=== PATIENT | male | born 1985 | race Two or more races ===

== ENCOUNTER 2020-11-17 20:53 | Emergency (ER) | payer OTHER ==
[2020-11-17 20:57] VITALS: BMI 23.5
[2020-11-17] MEDS ORDERED: FOLIC ACID INJECTION - 1 MG, THIAMINE HCL 100 MG, MULTIVIT INJECTION ADULT 10 ML in SOD... IVPB ONE (21:44)
[2020-11-17] MEDS ORDERED: chlordiazePOXIDE HCL 25 MG CAPSULE PO ONE (22:07)
[2020-11-17 22:10] LABS: BASO % 0.5 % (0-2.0); EOS % 0.5 % (0-4.5); HEMATOCRIT 48.5 % (35.4-49); LYMPH % 15.1 % (8-40); MCH 31.5 pg (25.7-33.7); MEAN CELL VOLUME 90.1 fl (80-96); MEAN PLT VOLUME 7.7 fl (7.5-11.1); NEUT % 76.9 % (42.8-82.8); RBC 5.38 M/mm3 (4.00-5.60); RDW 16.2 % (11.9-15.9); WHITE BLOOD COUNT 3.7 K/mm3 (4.0-10.0)
[2020-11-17 22:11] LABS: PLATELET COUNT 62 K/MM3 (134-434)
[2020-11-17] MEDS ORDERED: chlordiazePOXIDE HCL 25 MG CAPSULE ONE (22:15)
[2020-11-17 22:31] LABS: CHLORIDE 98 mmol/L (98-107); POTASSIUM 3.8 mmol/L (3.5-5.1); SODIUM 136 mmol/L (136-145)
[2020-11-17 22:33] LABS: CALCIUM 9.7 mg/dL (8.5-10.1)
[2020-11-17 22:34] LABS: ALBUMIN 4.6 g/dl (3.4-5.0); ANION GAP 14 MMOL/L (8-16); CO2 25 mmol/L (21-32); GLUCOSE,RANDOM 105 mg/dL (74-106)
[2020-11-17 22:37] LABS: CREATININE 0.7 mg/dL (0.55-1.3); SGOT/AST 265 U/L (15-37); SGPT/ALT 233 U/L (13-61)
[2020-11-17 22:39] LABS: BILIRUBIN,TOTAL 1.2 mg/dL (0.2-1); TOT PROT 8.3 g/dl (6.4-8.2)
[2020-11-17 22:40] LABS: ALK PHOS 102 U/L (45-117)
[2020-11-17] MEDS ORDERED: SODIUM CHLORIDE 1,000 ML IV STA (23:13)
[2020-11-17] MEDS ORDERED: THIAMINE HCL 200 MG/2 ML VIAL IVPB ONE (23:14)
[2020-11-17] MEDS ORDERED: FOLIC ACID 5 MG/1 ML IVPB ONE (23:15)
[2020-11-17] MEDS ORDERED: THIAMINE HCL 200 MG/2 ML VIAL ONE (23:18)
[2020-11-18 05:43] VITALS: TEMP 99.2
[2020-11-18 07:22] VITALS: BP 147/91; PULSE 83
== END 2020-11-18 07:43 | disposition home or self-care (01) ==
LOC: JER 20:53
PROC: 3E033NZ Introduction of Analgesics, Hypnotics, Sedatives into Peripheral Vein, Percutaneous Approach (ICD-10-PCS; principal; 2020-11-17)
PROC: 3E033GC Introduction of Other Therapeutic Substance into Peripheral Vein, Percutaneous Approach (ICD-10-PCS; 2020-11-17)
PROC: 3E0337Z Introduction of Electrolytic and Water Balance Substance into Peripheral Vein, Percutaneous Approach (ICD-10-PCS; 2020-11-17)
DX: F10.10 Alcohol abuse, uncomplicated (principal)
CPT/HCPCS: 36415; 80053; 80307; 83690; 85025; 99285-25

== ENCOUNTER 2021-07-01 10:28 | Inpatient (IN) | payer OTHER ==
[2021-07-01 10:48] VITALS: BMI 25.0
[2021-07-01] MEDS ORDERED: SODIUM CHLORIDE 0.9% 500 ML INFUS.BAG IV ONE (11:06)
[2021-07-01] MEDS ORDERED: FOLIC ACID INJECTION - 1 MG, THIAMINE HCL 100 MG, MULTIVIT INJECTION ADULT 10 ML in SOD... IVPB ONE (11:06)
[2021-07-01 12:39] LABS: VENOUS BASE EXCESS -7.1 mmol/L (-2-2); VENOUS O2 SATURATION 72.8 % (70-80); VENOUS PCO2 33.1 mmHg (38-52); VENOUS PH 7.342 (7.310-7.410)
[2021-07-01 12:48] LABS: HEMATOCRIT 46.5 % (35.4-49); HEMOGLOBIN 16.3 GM/dL (11.7-16.9); MCH 32.9 pg (25.7-33.7); RBC 4.94 M/mm3 (4.00-5.60); WHITE BLOOD COUNT 2.4 K/mm3 (4.0-10.0)
[2021-07-01 12:49] LABS: BASO % 1.7 % (0-2.0); EOS % 0.1 % (0-4.5); LYMPH % 27.9 % (8-40); MEAN PLT VOLUME 7.9 fl (7.5-11.1); MONO % 9.7 % (3.8-10.2); NEUT % 60.6 % (42.8-82.8); PLATELET COUNT 39 10^3/uL (134-434); RDW 12.9 % (11.9-15.9)
[2021-07-01 12:50] LABS: INR 0.92 (0.83-1.09); PROTHROMBIN TIME (PATIENT) 11.2 SEC (9.7-13.0)
[2021-07-01 12:59] LABS: CHLORIDE 93 mmol/L (98-107); SODIUM 131 mmol/L (136-145)
[2021-07-01 13:02] LABS: ALBUMIN 3.7 g/dl (3.4-5.0); ANION GAP 23 MMOL/L (8-16); BLOOD UREA NITROGEN 13.7 mg/dL (7-18); CO2 15 mmol/L (21-32); GLUCOSE,RANDOM 100 mg/dL (74-106); LIPASE 847 U/L (73-393)
[2021-07-01 13:05] LABS: CREATININE 0.9 mg/dL (0.55-1.3); PHOSPHOROUS 2.5 mg/dL (2.5-4.9); SGOT/AST 213 U/L (15-37); SGPT/ALT 146 U/L (13-61)
[2021-07-01 13:07] LABS: BILIRUBIN,TOTAL 1.4 mg/dL (0.2-1); TOT PROT 7.5 g/dl (6.4-8.2)
[2021-07-01 13:08] LABS: ALK PHOS 121 U/L (45-117)
[2021-07-01] MEDS ORDERED: POTASSIUM CHLORIDE 20 MEQ PREMIX IVPB 100 ML IVPB ONE (13:13)
[2021-07-01] MEDS ORDERED: LACTULOSE 20 GM/30 ML UDC (FOR ORAL USE ONLY) PO ONE (15:31)
[2021-07-01] MEDS ORDERED: POTASSIUM CHLORIDE 10 MEQ PREMIX IVPB (POTASSIUM RIDER) IVPB ONE (16:00)
[2021-07-01] MEDS ORDERED: LACTULOSE 20 GM/30 ML UDC (FOR ORAL USE ONLY) ONE (16:03)
[2021-07-01] MEDS ORDERED: KCL 10 MEQ IVPB 10 MEQ/100 ML INFUS.BAG IVPB ONE (16:03)
[2021-07-01] MEDS ORDERED: THIAMINE HCL 200 MG/2 ML VIAL IVPB ONE (17:06)
[2021-07-01] MEDS ORDERED: SODIUM CHLORIDE 1,000 ML IV STA (17:10)
[2021-07-01] MEDS ORDERED: THIAMINE HCL 200 MG/2 ML VIAL ONE (18:09)
[2021-07-01] MEDS ORDERED: PANTOPRAZOLE SODIUM 40 MG VIAL ONE (18:09)
[2021-07-01] MEDS ORDERED: PIPERACILLIN/TAZOB 3.375 GM 3.375 GM/50 ML BAG IVPB ONE (18:10)
[2021-07-01] MEDS: SODIUM CHLORIDE 1,000 ML IV SCH (18:26)
[2021-07-01] MEDS: PANTOPRAZOLE SODIUM 40 MG VIAL IVPUSH SCH (18:26)
[2021-07-01] MEDS: PIPERACILLIN/TAZOB 3.375 GM 3.375 GM in DEXTROSE 5%-WATER - 50 ML IVPB SCH (18:26)
[2021-07-01] MEDS ORDERED: IBUPROFEN 400 MG TABLET (FP) PO PRN (19:08)
[2021-07-01] MEDS ORDERED: LACTULOSE 20 GM/30 ML UDC (FOR ORAL USE ONLY) PO PRN (19:11)
[2021-07-01] MEDS ORDERED: SODIUM CHLORIDE 1,000 ML IV SCH ×2 (19:15→19:25)
[2021-07-01] MEDS ORDERED: MORPHINE SULFATE 2 MG/ML VIAL IVPUSH PRN (19:32)
[2021-07-01] MEDS ORDERED: LORazepam 2 MG/ML SDV VIAL IVPUSH PRN (19:32)
[2021-07-01 21:10] LABS: BASO % 1.4 % (0-2.0); EOS % 0.1 % (0-4.5); HEMATOCRIT 36.9 % (35.4-49); HEMOGLOBIN 13.2 GM/dL (11.7-16.9); LYMPH % 20.3 % (8-40); MCH 33.1 pg (25.7-33.7); MCHC 35.7 g/dl (32.0-35.9); MEAN CELL VOLUME 92.8 fl (80-96); MEAN PLT VOLUME 8.3 fl (7.5-11.1); MONO % 6.7 % (3.8-10.2); NEUT % 71.5 % (42.8-82.8); RBC 3.98 M/mm3 (4.00-5.60); RDW 12.9 % (11.9-15.9); WHITE BLOOD COUNT 2.2 K/mm3 (4.0-10.0)
[2021-07-01 22:41] LABS: PLATELET COUNT 32 10^3/uL (134-434)
[2021-07-02] MEDS ORDERED: PIPERACILLIN/TAZOBACTAM 3.375 GM VIAL IVPB ONE ×3 (03:14→20:27)
[2021-07-02] MEDS ORDERED: DEXTROSE 5%-WATER - 50 ML IVPB ONE ×3 (03:15→20:27)
[2021-07-02] MEDS: NYSTATIN 500,000 UNITS/5 ML SUSPENSION PO SCH ×2 (03:15→06:48)
[2021-07-02] MEDS: PIPERACILLIN/TAZOB 3.375 GM 3.375 GM in DEXTROSE 5%-WATER - 50 ML IVPB SCH ×3 (03:16→21:02)
[2021-07-02 07:05] LABS: HEMATOCRIT 37.9 % (35.4-49); HEMOGLOBIN 13.5 GM/dL (11.7-16.9); MCH 33.5 pg (25.7-33.7); MCHC 35.6 g/dl (32.0-35.9); MEAN CELL VOLUME 94.1 fl (80-96); MEAN PLT VOLUME 8.5 fl (7.5-11.1); RBC 4.03 M/mm3 (4.00-5.60); RDW 12.5 % (11.9-15.9)
[2021-07-02 07:41] LABS: PLATELET COUNT 26 10^3/uL (134-434)
[2021-07-02 07:46] LABS: CALCIUM 7.9 mg/dL (8.5-10.1)
[2021-07-02 07:47] LABS: ALBUMIN 3.1 g/dl (3.4-5.0); BLOOD UREA NITROGEN 7.6 mg/dL (7-18); MAGNESIUM 1.7 mg/dL (1.8-2.4)
[2021-07-02 07:50] LABS: PHOSPHOROUS 1.6 mg/dL (2.5-4.9)
[2021-07-02 07:52] LABS: BILIRUBIN,TOTAL 1.6 mg/dL (0.2-1)
[2021-07-02 07:53] LABS: CREATININE 0.6 mg/dL (0.55-1.3)
[2021-07-02 07:55] LABS: TOT PROT 6.1 g/dl (6.4-8.2)
[2021-07-02] MEDS: MULTIVITAMINS (DAILY MVI) TABLET (FP) PO SCH (09:58)
[2021-07-02] MEDS: THIAMINE HCL 100 MG TABLET (FP) PO SCH (09:58)
[2021-07-02] MEDS: FOLIC ACID 1 MG TABLET (FP) PO SCH (09:58)
[2021-07-02] MEDS: PANTOPRAZOLE SODIUM 40 MG VIAL IVPUSH SCH (09:58)
[2021-07-02] MEDS: SODIUM CHLORIDE 1,000 ML IV SCH (09:59)
[2021-07-02] MEDS ORDERED: MAGNESIUM SULFATE IN WATER 2 GM/50 ML IVPB IVPB ONE (10:30)
[2021-07-02] MEDS: KCL 10 MEQ IVPB 10 MEQ/100 ML INFUS.BAG IVPB SCH ×3 (10:52→13:06)
[2021-07-02] MEDS ORDERED: PT OWN MED DRAWER 7, Y5N ONE (13:04)
[2021-07-02] MEDS: POTASSIUM CHLORIDE IVPB SCH (13:06)
[2021-07-02] MEDS: NORMAL SALINE IVPB SCH (13:06)
[2021-07-02] MEDS: DEXTROSE 5% IVPB SCH (13:06)
[2021-07-02] MEDS: NAPH,MB-DB/K PH,MBDB POWDER PACKET PO SCH ×2 (13:07→21:03)
[2021-07-02 13:09] LABS: HIV INTERPRETATION NEGATIVE (NEGATIVE)
[2021-07-02 21:12] LABS: EPI CELLS 9 /uL (0-25.1); HYALINE CASTS 2 /uL (0-3.1); URINE APPEARANCE CLEAR; URINE BACTERIA 37 /uL (0-1359); URINE BILIRUBIN NEGATIVE (NEGATIVE); URINE COLOR YELLOW; URINE GLUCOSE (UA) NEGATIVE (NEGATIVE); URINE KETONE 4+ (NEGATIVE); URINE LEUK ESTERASE NEGATIVE (NEGATIVE); URINE NITRITE NEGATIVE (NEGATIVE); URINE PROTEIN 2+ (NEGATIVE); URINE RBC 36 /uL (0-23.9); URINE WBC 6 /uL (0-25.8)
[2021-07-02 21:13] LABS: COCAINE, UR NEGATIVE (NEGATIVE); METHADONE, UR NEGATIVE (NEGATIVE); OPIATES, URI NEGATIVE (NEGATIVE); PHENCYCLIDINE,URINE NEGATIVE (NEGATIVE); URINE BARBITURATES NEGATIVE (NEGATIVE); URINE BENZODIAZEPINES NEGATIVE (NEGATIVE)
[2021-07-02 21:24] LABS: URINE AMPHETAMINES NEGATIVE (NEGATIVE)
[2021-07-03] MEDS ORDERED: PIPERACILLIN/TAZOBACTAM 3.375 GM VIAL IVPB ONE ×2 (02:28→07:59)
[2021-07-03] MEDS ORDERED: DEXTROSE 5%-WATER - 50 ML IVPB ONE ×2 (02:29→07:59)
[2021-07-03] MEDS: PIPERACILLIN/TAZOB 3.375 GM 3.375 GM in DEXTROSE 5%-WATER - 50 ML IVPB SCH (02:46)
[2021-07-03] MEDS: NAPH,MB-DB/K PH,MBDB POWDER PACKET PO SCH ×3 (05:59→21:00)
[2021-07-03 07:32] LABS: BASO % 0.6 % (0-2.0); EOS % 1.9 % (0-4.5); HEMATOCRIT 37.8 % (35.4-49); HEMOGLOBIN 13.9 GM/dL (11.7-16.9); LYMPH % 25.7 % (8-40); MCH 33.2 pg (25.7-33.7); MCHC 36.7 g/dl (32.0-35.9); MEAN CELL VOLUME 90.4 fl (80-96); MEAN PLT VOLUME 8.1 fl (7.5-11.1); MONO % 8.2 % (3.8-10.2); NEUT % 63.6 % (42.8-82.8); RBC 4.18 M/mm3 (4.00-5.60); RDW 12.9 % (11.9-15.9); WHITE BLOOD COUNT 2.2 K/mm3 (4.0-10.0)
[2021-07-03 07:38] LABS: PLATELET COUNT 24 10^3/uL (134-434)
[2021-07-03 07:48] LABS: CHLORIDE 97 mmol/L (98-107); SODIUM 133 mmol/L (136-145)
[2021-07-03 07:50] LABS: ALBUMIN 3.2 g/dl (3.4-5.0); BLOOD UREA NITROGEN 4.5 mg/dL (7-18); CALCIUM 8.1 mg/dL (8.5-10.1); CO2 25 mmol/L (21-32); GLUCOSE,RANDOM 165 mg/dL (74-106); MAGNESIUM 1.9 mg/dL (1.8-2.4)
[2021-07-03 07:54] LABS: BILIRUBIN,TOTAL 1.5 mg/dL (0.2-1); CREATININE 0.7 mg/dL (0.55-1.3); PHOSPHOROUS 1.4 mg/dL (2.5-4.9); SGOT/AST 135 U/L (15-37); SGPT/ALT 99 U/L (13-61); TOT PROT 6.4 g/dl (6.4-8.2)
[2021-07-03 07:57] LABS: ALK PHOS 96 U/L (45-117)
[2021-07-03 08:19] LABS: ANION GAP 10 MMOL/L (8-16)
[2021-07-03] MEDS: LORazepam 2 MG/ML SDV VIAL IVPUSH PRN ×2 (08:30→14:09)
[2021-07-03] MEDS ORDERED: POTASSIUM CHLORIDE TABS 20 MEQ TABLET.ER (FP) PO ONE (08:46)
[2021-07-03] MEDS ORDERED: MAGNESIUM SULF 50% (8.12 MEQ/2 ML-1 GM VIAL) IVPB ONE (08:49)
[2021-07-03] MEDS: KCL 10 MEQ IVPB 10 MEQ/100 ML INFUS.BAG IVPB SCH ×3 (09:13→11:17)
[2021-07-03] MEDS: MULTIVITAMINS (DAILY MVI) TABLET (FP) PO SCH (09:16)
[2021-07-03] MEDS: THIAMINE HCL 100 MG TABLET (FP) PO SCH (09:16)
[2021-07-03] MEDS: FOLIC ACID 1 MG TABLET (FP) PO SCH (09:17)
[2021-07-03] MEDS: PANTOPRAZOLE SODIUM 40 MG VIAL IVPUSH SCH (09:58)
[2021-07-03] MEDS ORDERED: POTASSIUM PHOSPHATE 30 MM in SODIUM CHLORIDE 500 ML IVPB ONE (10:00)
[2021-07-03] MEDS ORDERED: ENOXAPARIN NA (PORCINE) 40 MG/0.4 ML DISP.SYRIN SQ SCH (10:00)
[2021-07-03] MEDS: POTASSIUM CHLORIDE IVPB SCH ×2 (11:17→14:40)
[2021-07-03] MEDS: DEXTROSE 5% IVPB SCH ×2 (11:17→14:40)
[2021-07-03] MEDS: NORMAL SALINE IVPB SCH ×2 (11:17→14:40)
[2021-07-03] MEDS ORDERED: LORazepam 1 MG TABLET PO PRN ×3 (15:18→21:09)
[2021-07-03] MEDS: LORazepam 1 MG TABLET PO SCH ×2 (16:31→23:12)
[2021-07-03 19:40] LABS: MAGNESIUM 2.2 mg/dL (1.8-2.4)
[2021-07-03 19:45] LABS: PHOSPHOROUS 1.5 mg/dL (2.5-4.9)
[2021-07-03] MEDS ORDERED: MELATONIN 5 MG TABLETS PO ONE (22:45)
[2021-07-04] MEDS: NAPH,MB-DB/K PH,MBDB POWDER PACKET PO SCH ×3 (06:00→21:33)
[2021-07-04] MEDS: LORazepam 1 MG TABLET PO SCH ×4 (06:00→23:48)
[2021-07-04 06:35] LABS: HEMATOCRIT 40.4 % (35.4-49); HEMOGLOBIN 14.8 GM/dL (11.7-16.9); MCH 33.7 pg (25.7-33.7); MCHC 36.7 g/dl (32.0-35.9); MEAN PLT VOLUME 8.8 fl (7.5-11.1); RBC 4.39 M/mm3 (4.00-5.60); RDW 12.5 % (11.9-15.9); WHITE BLOOD COUNT 2.9 K/mm3 (4.0-10.0)
[2021-07-04 06:53] LABS: ALBUMIN 3.2 g/dl (3.4-5.0); BLOOD UREA NITROGEN 4.9 mg/dL (7-18); CALCIUM 8.7 mg/dL (8.5-10.1); MAGNESIUM 2.2 mg/dL (1.8-2.4)
[2021-07-04 06:56] LABS: CREATININE 0.4 mg/dL (0.55-1.3); PHOSPHOROUS 2.6 mg/dL (2.5-4.9)
[2021-07-04 06:57] LABS: BILIRUBIN,TOTAL 1.8 mg/dL (0.2-1); TOT PROT 6.7 g/dl (6.4-8.2)
[2021-07-04] MEDS ORDERED: POTASSIUM CHLORIDE TABS 20 MEQ TABLET.ER (FP) PO ONE ×2 (07:24→07:29)
[2021-07-04 07:33] LABS: PLATELET COUNT 35 10^3/uL (134-434)
[2021-07-04] MEDS: KCL 10 MEQ IVPB 10 MEQ/100 ML INFUS.BAG IVPB SCH ×3 (08:04→11:28)
[2021-07-04] MEDS ORDERED: NAPH,MB-DB/K PH,MBDB POWDER PACKET PO SCH (08:30)
[2021-07-04] MEDS ORDERED: PT OWN MED DRAWER 7, Y5N ONE (09:46)
[2021-07-04] MEDS: NICOTINE 7 MG/24 HOURS TOPICAL PATCH TD SCH (09:53)
[2021-07-04] MEDS: MULTIVITAMINS (DAILY MVI) TABLET (FP) PO SCH (09:53)
[2021-07-04] MEDS: FOLIC ACID 1 MG TABLET (FP) PO SCH (09:53)
[2021-07-04] MEDS: PANTOPRAZOLE SODIUM 40 MG VIAL IVPUSH SCH (09:53)
[2021-07-04] MEDS ORDERED: THIAMINE HCL 200 MG/2 ML VIAL IVPB SCH (10:00)
[2021-07-04] MEDS: NORMAL SALINE IVPB SCH (12:27)
[2021-07-04] MEDS: DEXTROSE 5% IVPB SCH (12:27)
[2021-07-04] MEDS: POTASSIUM CHLORIDE IVPB SCH (12:27)
[2021-07-04] MEDS: THIAMINE HCL 200 MG/2 ML VIAL IVPB SCH ×2 (14:48→21:33)
[2021-07-04 17:06] LABS: PHOSPHOROUS 2.6 mg/dL (2.5-4.9)
[2021-07-05] MEDS: LORazepam 1 MG TABLET PO SCH ×4 (04:58→23:14)
[2021-07-05] MEDS: THIAMINE HCL 200 MG/2 ML VIAL IVPB SCH ×3 (05:04→21:28)
[2021-07-05] MEDS: NAPH,MB-DB/K PH,MBDB POWDER PACKET PO SCH ×3 (05:04→21:28)
[2021-07-05 07:30] LABS: HEMATOCRIT 42.3 % (35.4-49); HEMOGLOBIN 15.4 GM/dL (11.7-16.9); MCH 33.6 pg (25.7-33.7); MCHC 36.5 g/dl (32.0-35.9); MEAN PLT VOLUME 8.4 fl (7.5-11.1); PLATELET COUNT 74 10^3/uL (134-434); RDW 12.8 % (11.9-15.9); WHITE BLOOD COUNT 4.7 K/mm3 (4.0-10.0)
[2021-07-05 07:56] LABS: ALBUMIN 3.4 g/dl (3.4-5.0); BLOOD UREA NITROGEN 7.3 mg/dL (7-18); CALCIUM 8.9 mg/dL (8.5-10.1); MAGNESIUM 2.1 mg/dL (1.8-2.4)
[2021-07-05 07:59] LABS: CREATININE 0.4 mg/dL (0.55-1.3)
[2021-07-05 08:00] LABS: PHOSPHOROUS 3.5 mg/dL (2.5-4.9)
[2021-07-05 08:02] LABS: BILIRUBIN,TOTAL 1.3 mg/dL (0.2-1); TOT PROT 6.9 g/dl (6.4-8.2)
[2021-07-05] MEDS: MULTIVITAMINS (DAILY MVI) TABLET (FP) PO SCH (10:28)
[2021-07-05] MEDS: FOLIC ACID 1 MG TABLET (FP) PO SCH (10:28)
[2021-07-05] MEDS: PANTOPRAZOLE SODIUM 40 MG VIAL IVPUSH SCH (10:28)
[2021-07-05] MEDS: NICOTINE 7 MG/24 HOURS TOPICAL PATCH TD SCH (11:11)
[2021-07-05] MEDS: NORMAL SALINE IVPB SCH (11:14)
[2021-07-05] MEDS: DEXTROSE 5% IVPB SCH (11:14)
[2021-07-05] MEDS: POTASSIUM CHLORIDE IVPB SCH (11:14)
[2021-07-05 18:05] LABS: PHOSPHOROUS 4.4 mg/dL (2.5-4.9)
[2021-07-06] MEDS ORDERED: LORazepam 0.5 MG TABLET PO PRN
[2021-07-06] MEDS: NAPH,MB-DB/K PH,MBDB POWDER PACKET PO SCH ×2 (05:48→14:03)
[2021-07-06] MEDS: LORazepam 0.5 MG TABLET PO SCH ×4 (05:48→23:14)
[2021-07-06] MEDS: THIAMINE HCL 200 MG/2 ML VIAL IVPB SCH ×3 (05:48→21:11)
[2021-07-06 06:24] LABS: HEMATOCRIT 40.3 % (35.4-49); HEMOGLOBIN 14.5 GM/dL (11.7-16.9); MCH 33.6 pg (25.7-33.7); MCHC 35.9 g/dl (32.0-35.9); MEAN CELL VOLUME 93.6 fl (80-96); MEAN PLT VOLUME 8.3 fl (7.5-11.1); PLATELET COUNT 128 10^3/uL (134-434); RBC 4.31 M/mm3 (4.00-5.60); RDW 12.4 % (11.9-15.9); WHITE BLOOD COUNT 4.3 K/mm3 (4.0-10.0)
[2021-07-06 06:39] LABS: CALCIUM 8.9 mg/dL (8.5-10.1)
[2021-07-06 06:40] LABS: ALBUMIN 3.1 g/dl (3.4-5.0); BLOOD UREA NITROGEN 6.4 mg/dL (7-18); MAGNESIUM 1.9 mg/dL (1.8-2.4)
[2021-07-06 06:43] LABS: CREATININE 0.6 mg/dL (0.55-1.3); PHOSPHOROUS 4.2 mg/dL (2.5-4.9)
[2021-07-06 06:44] LABS: TOT PROT 6.6 g/dl (6.4-8.2)
[2021-07-06] MEDS: PANTOPRAZOLE SODIUM 40 MG VIAL IVPUSH SCH (09:45)
[2021-07-06] MEDS: FOLIC ACID 1 MG TABLET (FP) PO SCH (09:45)
[2021-07-06] MEDS: MULTIVITAMINS (DAILY MVI) TABLET (FP) PO SCH (09:45)
[2021-07-06] MEDS: NICOTINE 7 MG/24 HOURS TOPICAL PATCH TD SCH (11:31)
[2021-07-06] MEDS: DEXTROSE 5% IVPB SCH (15:02)
[2021-07-06] MEDS: NORMAL SALINE IVPB SCH (15:02)
[2021-07-06] MEDS: POTASSIUM CHLORIDE IVPB SCH (15:02)
[2021-07-06] MEDS ORDERED: LORazepam 1 MG TABLET PO PRN (18:45)
[2021-07-06] MEDS: HEPARIN NA (PORCINE) 5,000 UNITS/ML 1ML VIAL SQ SCH (21:10)
[2021-07-07] MEDS ORDERED: LORazepam 0.5 MG TABLET PO ONE (05:00)
[2021-07-07] MEDS: HEPARIN NA (PORCINE) 5,000 UNITS/ML 1ML VIAL SQ SCH ×3 (06:20→21:18)
[2021-07-07 06:49] LABS: HEMATOCRIT 38.2 % (35.4-49); HEMOGLOBIN 13.7 GM/dL (11.7-16.9); MCH 33.5 pg (25.7-33.7); MEAN CELL VOLUME 93.1 fl (80-96); MEAN PLT VOLUME 8.2 fl (7.5-11.1); PLATELET COUNT 200 10^3/uL (134-434); RDW 12.6 % (11.9-15.9); WHITE BLOOD COUNT 4.5 K/mm3 (4.0-10.0)
[2021-07-07 07:03] LABS: CALCIUM 8.7 mg/dL (8.5-10.1)
[2021-07-07 07:04] LABS: ALBUMIN 3.1 g/dl (3.4-5.0); BLOOD UREA NITROGEN 13.6 mg/dL (7-18); MAGNESIUM 2.1 mg/dL (1.8-2.4)
[2021-07-07 07:07] LABS: CREATININE 0.7 mg/dL (0.55-1.3); PHOSPHOROUS 3.9 mg/dL (2.5-4.9)
[2021-07-07 07:09] LABS: TOT PROT 6.5 g/dl (6.4-8.2)
[2021-07-07] MEDS: THIAMINE HCL 200 MG/2 ML VIAL IVPB SCH (09:22)
[2021-07-07] MEDS: PANTOPRAZOLE SODIUM 40 MG VIAL IVPUSH SCH (09:22)
[2021-07-07] MEDS: FOLIC ACID 1 MG TABLET (FP) PO SCH (09:23)
[2021-07-07] MEDS: MULTIVITAMINS (DAILY MVI) TABLET (FP) PO SCH (09:23)
[2021-07-07] MEDS: NICOTINE 7 MG/24 HOURS TOPICAL PATCH TD SCH (09:24)
[2021-07-08] MEDS: HEPARIN NA (PORCINE) 5,000 UNITS/ML 1ML VIAL SQ SCH ×3 (06:30→23:06)
[2021-07-08 08:13] LABS: ALBUMIN 3.2 g/dl (3.4-5.0); BLOOD UREA NITROGEN 15.3 mg/dL (7-18); CALCIUM 8.8 mg/dL (8.5-10.1); MAGNESIUM 1.9 mg/dL (1.8-2.4)
[2021-07-08 08:16] LABS: CREATININE 0.6 mg/dL (0.55-1.3); PHOSPHOROUS 3.6 mg/dL (2.5-4.9)
[2021-07-08 08:18] LABS: BILIRUBIN,TOTAL 0.8 mg/dL (0.2-1); TOT PROT 6.9 g/dl (6.4-8.2)
[2021-07-08 09:01] LABS: HEMATOCRIT 41.2 % (35.4-49); HEMOGLOBIN 14.3 GM/dL (11.7-16.9); MCH 32.6 pg (25.7-33.7); MCHC 34.7 g/dl (32.0-35.9); MEAN PLT VOLUME 8.6 fl (7.5-11.1); PLATELET COUNT 280 10^3/uL (134-434); RBC 4.38 M/mm3 (4.00-5.60)
[2021-07-08] MEDS: MULTIVITAMINS (DAILY MVI) TABLET (FP) PO SCH (09:26)
[2021-07-08] MEDS: FOLIC ACID 1 MG TABLET (FP) PO SCH (09:26)
[2021-07-08] MEDS: THIAMINE HCL 200 MG/2 ML VIAL IVPB SCH (09:26)
[2021-07-08] MEDS: NICOTINE 7 MG/24 HOURS TOPICAL PATCH TD SCH (09:27)
[2021-07-08] MEDS: PANTOPRAZOLE SODIUM 40 MG VIAL IVPUSH SCH (09:27)
[2021-07-08] MEDS: PANTOPRAZOLE 40 MG TABLET PO SCH (15:10)
[2021-07-08] MEDS ORDERED: LORazepam 2 MG/ML SDV VIAL ONE ×2 (21:54→21:58)
[2021-07-08] MEDS ORDERED: LORazepam 2 MG/ML SDV VIAL IVPUSH PRN (22:10)
[2021-07-08] MEDS ORDERED: LORazepam 2 MG/ML SDV VIAL IVPUSH ONE (23:19)
[2021-07-09] MEDS ORDERED: LORazepam 1 MG TABLET PO SCH (05:00)
[2021-07-09] MEDS: HEPARIN NA (PORCINE) 5,000 UNITS/ML 1ML VIAL SQ SCH ×2 (06:12→13:13)
[2021-07-09 07:11] LABS: BASO % 0.5 % (0-2.0); EOS % 1.4 % (0-4.5); HEMATOCRIT 37.9 % (35.4-49); HEMOGLOBIN 13.6 GM/dL (11.7-16.9); LYMPH % 27.3 % (8-40); MCH 33.9 pg (25.7-33.7); MEAN CELL VOLUME 94.2 fl (80-96); MONO % 19.8 % (3.8-10.2); PLATELET COUNT 336 10^3/uL (134-434); RBC 4.02 M/mm3 (4.00-5.60); RDW 12.2 % (11.9-15.9); WHITE BLOOD COUNT 4.3 K/mm3 (4.0-10.0)
[2021-07-09 07:29] LABS: ALBUMIN 3.3 g/dl (3.4-5.0); BLOOD UREA NITROGEN 13.9 mg/dL (7-18); CALCIUM 9.3 mg/dL (8.5-10.1); MAGNESIUM 2.1 mg/dL (1.8-2.4)
[2021-07-09 07:32] LABS: CREATININE 0.6 mg/dL (0.55-1.3)
[2021-07-09 07:33] LABS: PHOSPHOROUS 3.5 mg/dL (2.5-4.9)
[2021-07-09 07:34] LABS: BILIRUBIN,TOTAL 0.7 mg/dL (0.2-1); TOT PROT 6.7 g/dl (6.4-8.2)
[2021-07-09] MEDS ORDERED: LORazepam 1 MG TABLET PO PRN (08:23)
[2021-07-09] MEDS ORDERED: LORazepam 0.5 MG TABLET PO PRN ×2 (08:37)
[2021-07-09] MEDS ORDERED: PT OWN MED DRAWER 7, Y5N ONE (09:23)
[2021-07-09] MEDS: LORazepam 1 MG TABLET PO SCH ×2 (09:28→13:13)
[2021-07-09] MEDS: THIAMINE HCL 200 MG/2 ML VIAL IVPB SCH (09:28)
[2021-07-09] MEDS: MULTIVITAMINS (DAILY MVI) TABLET (FP) PO SCH (09:28)
[2021-07-09] MEDS: PANTOPRAZOLE 40 MG TABLET PO SCH (09:28)
[2021-07-09] MEDS: FOLIC ACID 1 MG TABLET (FP) PO SCH (09:28)
[2021-07-09] MEDS: NICOTINE 7 MG/24 HOURS TOPICAL PATCH TD SCH (13:13)
[2021-07-09 16:20] VITALS: BP 110/75; PULSE 84; TEMP 98.9
[2021-07-10] MEDS ORDERED: LORazepam 0.5 MG TABLET PO SCH (05:00)
[2021-07-11] MEDS ORDERED: LORazepam 0.5 MG TABLET PO PRN
[2021-07-11] MEDS ORDERED: LORazepam 0.5 MG TABLET PO ONE (05:00)
== END 2021-07-09 19:41 | disposition home or self-care (01) | DRG 775 ==
LOC: JER 10:28 → JERBED 16:28 → J2W 07-02 03:02
PROVIDERS: ADMIT Internal Medicine; ATTEND Internal Medicine
PROC: HZ2ZZZZ Detoxification Services for Substance Abuse Treatment (ICD-10-PCS; principal; 2021-07-01)
DX: F10.239 Alcohol dependence with withdrawal, unspecified (principal); B37.81 Candidal esophagitis; E87.2 Acidosis; B15.9 Hepatitis A without hepatic coma; E51.2 Wernicke's encephalopathy; E87.1 Hypo-osmolality and hyponatremia; D70.9 Neutropenia, unspecified; R94.5 Abnormal results of liver function studies; F17.210 Nicotine dependence, cigarettes, uncomplicated; R74.01 Elevation of levels of liver transaminase levels; E87.6 Hypokalemia; D69.6 Thrombocytopenia, unspecified; K70.10 Alcoholic hepatitis without ascites; K52.9 Noninfective gastroenteritis and colitis, unspecified; D61.818 Other pancytopenia; E83.42 Hypomagnesemia
CPT/HCPCS: 36415; 70450-TC; 70551-TC; 71045-TC-FY; 72125-TC; 74177-TC; 76705-TC; 80053; 80307; 81003; 82010; 82140; 82550; 82553; 82803; 82962; 83036; 83690; 83735; 84100; 84132; 84484; 85025; 85027; 85610; 86705; 86706; 86707; 86708; 87086; 87350; 87389; 87517; 87902; 93005; 93010; 97116-GP; 97162-GP; 99285-25; C9803; J1644; U0003; U0005

== ENCOUNTER 2023-09-06 18:48 | Inpatient (IN) | payer OTHER ==
[2023-09-06] MEDS ORDERED: THIAMINE HCL 200 MG/2 ML VIAL IVPB STA (19:17)
[2023-09-06] MEDS ORDERED: chlordiazePOXIDE HCL 25 MG CAPSULE PO ONE (19:28)
[2023-09-06] MEDS ORDERED: FOLIC ACID INJECTION - 1 MG, THIAMINE HCL 100 MG, MULTIVIT INJECTION ADULT 10 ML in SOD... IVPB ONE (19:28)
[2023-09-06 19:35] LABS: INR 0.97 (0.83-1.09); PROTHROMBIN TIME (PATIENT) 11.3 SEC (9.7-13.0)
[2023-09-06 19:37] LABS: ACTIVATED PTT 28.6 SECONDS (25.2-36.5)
[2023-09-06 19:39] LABS: BASO % 0.7 % (0-2.0); EOS % 1.9 % (0-4.5); HEMATOCRIT 51.9 % (35.4-49); HEMOGLOBIN 17.4 GM/dL (11.7-16.9); LYMPH % 27.1 % (8-40); MCH 31.1 pg (25.7-33.7); MCHC 33.5 g/dl (32.0-35.9); MEAN CELL VOLUME 92.7 fl (80-96); MEAN PLT VOLUME 8.4 fl (7.5-11.1); MONO % 6.8 % (3.8-10.2); NEUT % 63.5 % (42.8-82.8); PLATELET COUNT 42 10^3/uL (134-434); RDW 14.8 % (11.9-15.9); WHITE BLOOD COUNT 3.8 K/mm3 (4.0-10.0)
[2023-09-06 19:43] LABS: POTASSIUM 4.1 mmol/L (3.5-5.1)
[2023-09-06 19:47] LABS: ALBUMIN 3.7 g/dl (3.4-5.0); BLOOD UREA NITROGEN 10.1 mg/dL (7-18); CALCIUM 9.2 mg/dL (8.5-10.1)
[2023-09-06 19:51] LABS: CREATININE 0.9 mg/dL (0.55-1.3)
[2023-09-06 19:52] LABS: BILIRUBIN,TOTAL 1.2 mg/dL (0.2-1); TOT PROT 7.4 g/dl (6.4-8.2)
[2023-09-06] MEDS ORDERED: chlordiazePOXIDE HCL 25 MG CAPSULE ONE (19:58)
[2023-09-06 20:27] LABS: EPI CELLS 8 /uL (0-25.1); HYALINE CASTS 5 /uL (0-3.1); URINE APPEARANCE TURBID; URINE BILIRUBIN 1+ (NEGATIVE); URINE COLOR ORANGE; URINE GLUCOSE (UA) 1+ (NEGATIVE); URINE KETONE TRACE (NEGATIVE); URINE LEUK ESTERASE TRACE (NEGATIVE); URINE NITRITE POSITIVE (NEGATIVE); URINE PROTEIN 3+ (NEGATIVE); URINE RBC 125 /uL (0-23.9); URINE WBC 13 /uL (0-25.8)
[2023-09-07] MEDS ORDERED: LORazepam 1 MG TABLET PO PRN (01:28)
[2023-09-07 05:16] LABS: EPI CELLS 7 /uL (0-25.1); HYALINE CASTS 1 /uL (0-3.1); URINE APPEARANCE Clear; URINE BACTERIA 45 /uL (0-1359); URINE BILIRUBIN Small (NEGATIVE); URINE COLOR DK YELLOW; URINE GLUCOSE (UA) Negative (NEGATIVE); URINE KETONE Trace (NEGATIVE); URINE LEUK ESTERASE Negative (NEGATIVE); URINE NITRITE Negative (NEGATIVE); URINE PROTEIN 30 (NEGATIVE); URINE RBC 48 /uL (0-23.9); URINE WBC 15 /uL (0-25.8)
[2023-09-07 05:17] LABS: CHLORIDE 105 mmol/L (98-107); POTASSIUM 3.5 mmol/L (3.5-5.1); SODIUM 135 mmol/L (136-145)
[2023-09-07] MEDS ORDERED: LORazepam 1 MG TABLET ONE ×4 (05:18→22:50)
[2023-09-07 05:20] LABS: ALBUMIN 3.3 g/dl (3.4-5.0); ANION GAP 6 mmol/L (4-13); BLOOD UREA NITROGEN 10.7 mg/dL (7-18); CALCIUM 8.5 mg/dL (8.5-10.1); CO2 24 mmol/L (21-32); GLUCOSE,RANDOM 88 mg/dL (74-106); MAGNESIUM 1.8 mg/dL (1.8-2.4)
[2023-09-07] MEDS: LORazepam 1 MG TABLET PO SCH ×4 (05:21→22:54)
[2023-09-07 05:22] LABS: CREATININE 0.6 mg/dL (0.55-1.3); PHOSPHOROUS 2.8 mg/dL (2.5-4.9); SGOT/AST 147 U/L (15-37); SGPT/ALT 129 U/L (13-61)
[2023-09-07 05:25] LABS: BILIRUBIN,TOTAL 1.3 mg/dL (0.2-1); TOT PROT 6.5 g/dl (6.4-8.2)
[2023-09-07 05:26] LABS: ALK PHOS 101 U/L (45-117)
[2023-09-07 06:32] LABS: HEMATOCRIT 45.8 % (35.4-49); HEMOGLOBIN 15.4 GM/dL (11.7-16.9); MCH 31.3 pg (25.7-33.7); MCHC 33.6 g/dl (32.0-35.9); MEAN CELL VOLUME 92.9 fl (80-96); MEAN PLT VOLUME 8.7 fl (7.5-11.1); PLATELET COUNT 39 10^3/uL (134-434); RBC 4.93 M/mm3 (4.00-5.60); RDW 14.4 % (11.9-15.9); WHITE BLOOD COUNT 3.8 K/mm3 (4.0-10.0)
[2023-09-07 06:34] LABS: SYPHILIS W/ RPR CONF NON-REACTIVE (NONREACTIVE)
[2023-09-07] MEDS ORDERED: INSULIN (NOVOLOG) ASPART 100 UNITS/ML 10ML VIAL SQ SCH (07:00)
[2023-09-07 07:27] LABS: HIV INTERPRETATION NEGATIVE (NEGATIVE)
[2023-09-07 07:54] LABS: HIV INTERPRETATION NEGATIVE (NEGATIVE)
[2023-09-07] MEDS: INSULIN (NOVOLOG) ASPART 100 UNITS/ML 10ML VIAL SQ SCH ×4 (08:13→22:27)
[2023-09-07] MEDS: FOLIC ACID 1 MG TABLET (FP) PO SCH (10:13)
[2023-09-07] MEDS: NICOTINE 14 MG/24 HOURS TOPICAL PATCH TD SCH (10:14)
[2023-09-07] MEDS: THIAMINE HCL 100 MG TABLET (FP) PO SCH (10:14)
[2023-09-07] MEDS: SODIUM CHLORIDE 1,000 ML IV SCH (11:38)
[2023-09-07 17:48] LABS: COCAINE, UR NEGATIVE (NEGATIVE); URINE AMPHETAMINES NEGATIVE (NEGATIVE); URINE BARBITURATES NEGATIVE (NEGATIVE)
[2023-09-07 17:49] LABS: METHADONE, UR NEGATIVE (NEGATIVE); PHENCYCLIDINE,URINE NEGATIVE (NEGATIVE)
[2023-09-07 17:55] LABS: OPIATES, URI POSITIVE (NEGATIVE); URINE BENZODIAZEPINES POSITIVE (NEGATIVE)
[2023-09-08] MEDS: SODIUM CHLORIDE 1,000 ML IV SCH ×2 (03:24→09:56)
[2023-09-08] MEDS: LORazepam 1 MG TABLET PO SCH ×4 (05:55→22:25)
[2023-09-08] MEDS: INSULIN (NOVOLOG) ASPART 100 UNITS/ML 10ML VIAL SQ SCH ×4 (07:14→22:25)
[2023-09-08] MEDS: NICOTINE 14 MG/24 HOURS TOPICAL PATCH TD SCH (09:55)
[2023-09-08] MEDS: FOLIC ACID 1 MG TABLET (FP) PO SCH (09:55)
[2023-09-08] MEDS: THIAMINE HCL 100 MG TABLET (FP) PO SCH (09:55)
[2023-09-08 15:05] VITALS: BMI 21.7
[2023-09-08 15:38] LABS: BASO % 0.7 % (0-2.0); EOS % 1.8 % (0-4.5); HEMATOCRIT 44.4 % (35.4-49); HEMOGLOBIN 14.8 GM/dL (11.7-16.9); LYMPH % 24.9 % (8-40); MCH 31.1 pg (25.7-33.7); MCHC 33.3 g/dl (32.0-35.9); MEAN CELL VOLUME 93.3 fl (80-96); MEAN PLT VOLUME 9.1 fl (7.5-11.1); MONO % 6.4 % (3.8-10.2); NEUT % 66.2 % (42.8-82.8); PLATELET COUNT 66 10^3/uL (134-434); RBC 4.75 M/mm3 (4.00-5.60); RDW 14.2 % (11.9-15.9); WHITE BLOOD COUNT 4.7 K/mm3 (4.0-10.0)
[2023-09-09] MEDS ORDERED: LORazepam 0.5 MG TABLET PO PRN
[2023-09-09] MEDS ORDERED: LORazepam 0.5 MG TABLET PO SCH (05:00)
[2023-09-09] MEDS: INSULIN (NOVOLOG) ASPART 100 UNITS/ML 10ML VIAL SQ SCH (06:13)
[2023-09-09] MEDS: FOLIC ACID 1 MG TABLET (FP) PO SCH (09:42)
[2023-09-09] MEDS: NICOTINE 14 MG/24 HOURS TOPICAL PATCH TD SCH (09:42)
[2023-09-09] MEDS: THIAMINE HCL 100 MG TABLET (FP) PO SCH (09:42)
[2023-09-09 11:12] VITALS: BP 126/83; PULSE 83; RESP 18; TEMP 97.5
[2023-09-10] MEDS ORDERED: LORazepam 0.5 MG TABLET PO ONE (05:00)
== END 2023-09-09 11:40 | disposition home or self-care (01) | DRG 775 ==
LOC: JER 18:48 → OBSVTOIN 20:07 → JERBED 20:07 → J4S 09-07 23:12
PROVIDERS: ADMIT Internal Medicine; ATTEND Internal Medicine
DX: F10.239 Alcohol dependence with withdrawal, unspecified (principal); B19.10 Unspecified viral hepatitis B without hepatic coma; D69.6 Thrombocytopenia, unspecified; R56.9 Unspecified convulsions; F17.210 Nicotine dependence, cigarettes, uncomplicated
CPT/HCPCS: 36415; 70470-TC; 76705-TC; 80053; 80307; 81003; 82550; 82553; 82962; 83036; 83735; 84100; 85025; 85027; 85610; 85730; 86704; 86706; 86780; 86803; 86850; 86900; 86901; 87116; 87340; 87389; 87491; 87591; 87661; 93005; 93010; 95816; 97116-GP; 97161-GP; 99285-25; Q9967

== ENCOUNTER 2024-05-12 19:47 | Inpatient (IN) | payer SELFPAY ==
[2024-05-12 20:30] VITALS: BMI 24.1
[2024-05-12 21:31] LABS: BASO % 0.3 % (0-2.0); EOS % 0.2 % (0-4.5); HEMATOCRIT 43.6 % (35.4-49); HEMOGLOBIN 15.5 GM/dL (11.7-16.9); MCH 33.1 pg (25.7-33.7); MCHC 35.5 g/dl (32.0-35.9); MEAN CELL VOLUME 93.1 fl (80-96); MEAN PLT VOLUME 8.4 fl (7.5-11.1); NEUT % 85.5 % (42.8-82.8); PLATELET COUNT 71 10^3/uL (134-434); RBC 4.69 M/mm3 (4.00-5.60); RDW 14.8 % (11.9-15.9); WHITE BLOOD COUNT 5.6 K/mm3 (4.0-10.0)
[2024-05-12] MEDS: SODIUM CHLORIDE 0.9% 500 ML INFUS.BAG IV ONE (21:43)
[2024-05-12 21:50] LABS: POTASSIUM 3.4 mmol/L (3.5-5.1)
[2024-05-12 21:51] LABS: CALCIUM 9.3 mg/dL (8.5-10.1)
[2024-05-12 21:52] LABS: ALBUMIN 3.8 g/dl (3.4-5.0); BLOOD UREA NITROGEN 11.4 mg/dL (7-18)
[2024-05-12 21:55] LABS: CREATININE 0.6 mg/dL (0.55-1.3)
[2024-05-12 21:57] LABS: BILIRUBIN,TOTAL 1.6 mg/dL (0.2-1); TOT PROT 7.1 g/dl (6.4-8.2)
[2024-05-12] MEDS ORDERED: diazePAM CARPU-JECT 10 MG/2 ML DISP.SYRIN ONE (22:46)
[2024-05-12] MEDS ORDERED: POTASSIUM CHLORIDE ORAL LIQUID 20 MEQ/15 ML ONE (22:47)
[2024-05-12] MEDS: POTASSIUM CHLORIDE ORAL LIQUID 20 MEQ/15 ML PO ONE ×2 (22:51→22:59)
[2024-05-12] MEDS: diazePAM CARPU-JECT 10 MG/2 ML DISP.SYRIN IVPUSH ONE (22:51)
[2024-05-13] MEDS ORDERED: diazePAM 5 MG TABLET PO PRN (03:49)
[2024-05-13] MEDS: diazePAM 5 MG TABLET PO SCH ×2 (05:53→18:06)
[2024-05-13] MEDS: POTASSIUM CHLORIDE 10 MEQ in SODIUM CHLORIDE 1,000 ML IVPB SCH ×2 (05:53→13:12)
[2024-05-13 08:31] LABS: BASO % 0.5 % (0-2.0); EOS % 1.3 % (0-4.5); HEMATOCRIT 41.4 % (35.4-49); HEMOGLOBIN 14.4 GM/dL (11.7-16.9); LYMPH % 18.5 % (8-40); MCH 32.8 pg (25.7-33.7); MCHC 34.7 g/dl (32.0-35.9); MEAN CELL VOLUME 94.4 fl (80-96); MEAN PLT VOLUME 8.5 fl (7.5-11.1); MONO % 7.3 % (3.8-10.2); NEUT % 72.4 % (42.8-82.8); PLATELET COUNT 67 10^3/uL (134-434); RBC 4.39 M/mm3 (4.00-5.60); RDW 14.7 % (11.9-15.9); WHITE BLOOD COUNT 5.2 K/mm3 (4.0-10.0)
[2024-05-13 08:55] LABS: POTASSIUM 4.1 mmol/L (3.5-5.1)
[2024-05-13 08:57] LABS: CALCIUM 8.7 mg/dL (8.5-10.1); MAGNESIUM 1.6 mg/dL (1.8-2.4)
[2024-05-13 08:58] LABS: ALBUMIN 3.5 g/dl (3.4-5.0)
[2024-05-13 09:01] LABS: CREATININE 0.5 mg/dL (0.55-1.3)
[2024-05-13 09:02] LABS: BILIRUBIN,TOTAL 1.5 mg/dL (0.2-1); TOT PROT 6.6 g/dl (6.4-8.2)
[2024-05-13] MEDS ORDERED: ENOXAPARIN NA (PORCINE) 40 MG/0.4 ML DISP.SYRIN SQ SCH (10:00)
[2024-05-13 10:20] LABS: BILIRUBIN,DIRECT 0.6 mg/dL (0.0-0.2)
[2024-05-13 10:48] LABS: INR 1.01 (0.83-1.09); PROTHROMBIN TIME (PATIENT) 11.6 SEC (9.7-13.0)
[2024-05-13] MEDS: FOLIC ACID 1 MG TABLET (FP) PO SCH (12:17)
[2024-05-13] MEDS: THIAMINE 100 MG TABLET PO SCH ×2 (12:19→22:45)
[2024-05-13] MEDS: NAPH,MB-DB/K PH,MBDB POWDER PACKET PO SCH (12:20)
[2024-05-13] MEDS: MAGNESIUM 2GM/50ML STERILE WATER IVPB IVPB ONE (12:20)
[2024-05-13] MEDS: NAPH,MB-DB/K PH,MBDB POWDER PACKET PO ONE (12:24)
[2024-05-13] MEDS: LACTATED RINGERS SOLUTION 1,000 ML/1,000 ML INFUS.BAG IV SCH (18:15)
[2024-05-13] MEDS: diazePAM 5 MG TABLET PO PRN (20:58)
[2024-05-13] MEDS: diazePAM CARPU-JECT 10 MG/2 ML DISP.SYRIN IVPUSH ONE ×2 (21:44→22:57)
[2024-05-14] MEDS ORDERED: diazePAM 5 MG TABLET PO SCH (06:00)
[2024-05-14] MEDS: diazePAM 5 MG TABLET PO SCH (07:40)
[2024-05-14] MEDS: FOLIC ACID 1 MG TABLET (FP) PO SCH (09:18)
[2024-05-14] MEDS ORDERED: THIAMINE 100 MG TABLET PO SCH (10:00)
[2024-05-14 12:51] LABS: BASO % 0.6 % (0-2.0); EOS % 1.2 % (0-4.5); HEMATOCRIT 42.7 % (35.4-49); HEMOGLOBIN 14.9 GM/dL (11.7-16.9); LYMPH % 16.6 % (8-40); MCH 32.6 pg (25.7-33.7); MCHC 34.9 g/dl (32.0-35.9); MEAN CELL VOLUME 93.3 fl (80-96); MEAN PLT VOLUME 9.2 fl (7.5-11.1); MONO % 5.8 % (3.8-10.2); NEUT % 75.8 % (42.8-82.8); PLATELET COUNT 79 10^3/uL (134-434); RBC 4.58 M/mm3 (4.00-5.60); RDW 14.7 % (11.9-15.9); WHITE BLOOD COUNT 5.5 K/mm3 (4.0-10.0)
[2024-05-14 13:14] LABS: POTASSIUM 3.6 mmol/L (3.5-5.1)
[2024-05-14 13:22] LABS: ALBUMIN 3.5 g/dl (3.4-5.0); BLOOD UREA NITROGEN 10.9 mg/dL (7-18); MAGNESIUM 1.8 mg/dL (1.8-2.4)
[2024-05-14 13:25] LABS: CREATININE 0.6 mg/dL (0.55-1.3); PHOSPHOROUS 3.3 mg/dL (2.5-4.9)
[2024-05-14 13:27] LABS: BILIRUBIN,TOTAL 1.5 mg/dL (0.2-1); TOT PROT 6.6 g/dl (6.4-8.2)
[2024-05-15] MEDS: diazePAM 5 MG TABLET PO SCH (05:28)
[2024-05-15] MEDS ORDERED: diazePAM 5 MG TABLET PO SCH (06:00)
[2024-05-15 07:05] VITALS: RESP 18
[2024-05-15 12:46] LABS: BASO % 0.6 % (0-2.0); EOS % 1.1 % (0-4.5); HEMOGLOBIN 13.8 GM/dL (11.7-16.9); LYMPH % 24.7 % (8-40); MCHC 35.4 g/dl (32.0-35.9); MEAN CELL VOLUME 93.2 fl (80-96); MEAN PLT VOLUME 8.6 fl (7.5-11.1); MONO % 6.8 % (3.8-10.2); NEUT % 66.8 % (42.8-82.8); PLATELET COUNT 87 10^3/uL (134-434); RBC 4.18 M/mm3 (4.00-5.60); RDW 14.6 % (11.9-15.9); WHITE BLOOD COUNT 5.6 K/mm3 (4.0-10.0)
[2024-05-15 12:57] LABS: POTASSIUM 3.8 mmol/L (3.5-5.1)
[2024-05-15 12:59] LABS: CALCIUM 8.7 mg/dL (8.5-10.1)
[2024-05-15 13:00] LABS: ALBUMIN 3.3 g/dl (3.4-5.0); MAGNESIUM 1.8 mg/dL (1.8-2.4)
[2024-05-15 13:03] LABS: CREATININE 0.4 mg/dL (0.55-1.3); PHOSPHOROUS 4.2 mg/dL (2.5-4.9)
[2024-05-15 13:04] LABS: BILIRUBIN,TOTAL 1.1 mg/dL (0.2-1); TOT PROT 6.4 g/dl (6.4-8.2)
[2024-05-15] MEDS: QUEtiapine FUMARATE 25 MG TABLET PO SCH (22:32)
[2024-05-16] MEDS ORDERED: diazePAM 5 MG TABLET PO ONE (06:00)
[2024-05-16] MEDS: diazePAM 5 MG TABLET PO ONE (06:21)
[2024-05-16] MEDS: ACETAMINOPHEN 325 MG TABLET (FP) PO PRN (14:26)
[2024-05-16 15:50] VITALS: BP 77/40; PULSE 88; TEMP 99.3
== END 2024-05-16 17:55 | disposition home or self-care (01) | DRG 775 ==
LOC: JER 19:47 → JERBED 05-13 01:42 → J5S 05-13 08:50 → OBSVTOIN 05-13 11:53
PROVIDERS: ADMIT Internal Medicine; ATTEND Internal Medicine
PROC: HZ2ZZZZ Detoxification Services for Substance Abuse Treatment (ICD-10-PCS; principal; 2024-05-13)
DX: F10.239 Alcohol dependence with withdrawal, unspecified (principal); D69.6 Thrombocytopenia, unspecified; G92.8 Other toxic encephalopathy; E83.39 Other disorders of phosphorus metabolism; K70.10 Alcoholic hepatitis without ascites; E87.6 Hypokalemia; F17.210 Nicotine dependence, cigarettes, uncomplicated; K70.9 Alcoholic liver disease, unspecified; R74.01 Elevation of levels of liver transaminase levels
CPT/HCPCS: 36415; 71045-TC-FY; 80053; 82248; 83690; 83735; 84100; 84484; 85025; 85610; 93005; 93010; 99285-25; G0378